=== PATIENT | female | born 1985 | race Caucasian/White ===

== ENCOUNTER 2022-01-16 21:58 | Emergency (ER) | payer SELFPAY ==
[2022-01-16] VITALS (7 sets, daily range): BP systolic 119–129; BP diastolic 70–78
[2022-01-16] MEDS ORDERED: ULTRAM50 M1 PO (23:23)
[2022-01-16] MEDS ORDERED: CLEOCIN300 MG PO (23:23)
== END 2022-01-16 23:50 | disposition home or self-care (01) | DRG 159 ==
LOC: ED 21:58
DX: K04.7 Periapical abscess without sinus (principal)

== ENCOUNTER 2022-04-18 09:27 | Emergency (ER) | payer SELFPAY ==
[~2022-04-18] VITALS: Ht 172.7 cm; Wt 100.0 kg
[~2022-04-18 09:27] MED LIST: CLEOCIN300 MG PO; ULTRAM50 M1 PO
[2022-04-18 09:41] VITALS: BP 127/86
[2022-04-18 09:45] VITALS: BP 123/79
[2022-04-18 10:00] VITALS: BP 114/75
[2022-04-18 10:15] VITALS: BP 130/86
[2022-04-18] MEDS ORDERED: AMOXICILLIN500 M2 PO (10:27)
[2022-04-18 10:30] VITALS: BP 137/85
[2022-04-18 10:34] VITALS: BP 137/85
== END 2022-04-18 10:44 | disposition home or self-care (01) | DRG 159 ==
LOC: ED 09:27
DX: K02.9 Dental caries, unspecified (principal)

== ENCOUNTER 2022-11-13 09:01 | Observation (INO) | payer BC ==
[~2022-11-13] VITALS: Ht 172.7 cm; Wt 147.0 kg
[2022-11-13] VITALS (27 sets, daily range): BP systolic 100–127; BP diastolic 51–75
[~2022-11-13 09:01] MED LIST changes: +AMOXICILLIN500 M2 PO
[2022-11-13 10:30] LABS: BASO% 1.3 % (0-3); EOS% 3.6 % (0-8); HEMATOCRIT 25.4 % (37.0-47.0); LYMPH% 24.9 % (15-41); MEAN CELL VOLUME 63.8 fL CALC (80.0-100.0); MEAN CORPUSCULAR HGB 15.8 pG CALC (26.0-32.0); MEAN CORPUSCULAR HGB CONC 24.8 g/dL CAL (32.0-36.0); MONO% 8.7 % (2-13); NEUT# 2.74 thou/uL (2.00-7.15); NEUT% 61.5 % (42-76); RED BLOOD COUNT 3.98 mill/uL (4.20-5.60); RED CELL DISTRI WIDTH 18.5 % (11.5-15.5)
[2022-11-13 10:36] LABS: HEMOGLOBIN 6.3 g/dl (12.0-16.0)
[2022-11-13 10:37] LABS: ALKALINE PHOSPHATASE 57 u/l (38-126); ANION GAP 12 (6-22 (CALC)); BILIRUBIN, TOTAL 0.4 mg/dL (0.02-1.3); BUN 4 mg/dL (7-17); BUN/CREATININE RATIO 8 (12-20 (CALC)); CARBON DIOXIDE 25 mmol/l (22-30); CHLORIDE 107 mmol/l (95-108); CREATININE 0.5 mg/dL (0.5-1.0); GFR FOR AFR.AMER. > 60 ML/MIN (>=60 (CALC)); GFR OTHER RACES > 60 ML/MIN (>=60 (CALC)); INTERNATIONAL NORMALIZED RATIO 1.1 RATIO (0.7-1.3); POTASSIUM 3.9 mmol/l (3.5-5.1); PROTHROMBIN TIME 10.8 SECONDS (9.0-12.5); SGOT/AST 17 u/l (14-36); SODIUM 140 mmol/l (137-146); TOTAL PROTEIN 7.5 g/dL (6.3-8.2)
[2022-11-13 12:03] LABS: URINE BILIRUBIN - DIPSTICK NEGATIVE (NEGATIVE); URINE BLOOD DIPSTICK MODERATE (NEGATIVE); URINE COLOR YELLOW; URINE GLUCOSE - DIPSTICK NEGATIVE (NEGATIVE); URINE KETONE NEGATIVE (NEGATIVE); URINE LEUK ESTERASE NEGATIVE (NEGATIVE); URINE PH 7.5 (4.5-8.0); URINE PROTEIN - DIPSTICK NEGATIVE (NEG-TRACE); URINE SPECIFIC GRAVITY 1.015; URINE UROBILINOGEN - DIPSTICK 0.2 E.U./dL (0.2)
[2022-11-13 12:11] LABS: URINE EPITHELIAL CELLS FEW EPI/hpf (0-FEW); URINE NITRITE - DIPSTICK NEGATIVE (Negative)
[2022-11-13] MEDS ORDERED: MOTRIN800 MG PO (14:32)
[2022-11-13] MEDS ORDERED: QUETIAPINE FUMA25 MG PO (14:33)
[2022-11-13] MEDS ORDERED: ESCITALOPRAM OXA5 MG PO (14:33)
[2022-11-13] MEDS ORDERED: CLONAZEPAM0.5 M1 PO (15:09)
[2022-11-14] VITALS (7 sets, daily range): BP systolic 101–114; BP diastolic 54–56
[2022-11-14 05:54] LABS: BASO% 1.2 % (0-3); EOS% 4.4 % (0-8); HEMATOCRIT 30.6 % (37.0-47.0); LYMPH% 27.9 % (15-41); MEAN CORPUSCULAR HGB 19.1 pG CALC (26.0-32.0); MEAN CORPUSCULAR HGB CONC 28.1 g/dL CAL (32.0-36.0); MONO% 9.5 % (2-13); NEUT# 2.88 thou/uL (2.00-7.15); RED BLOOD COUNT 4.5 mill/uL (4.20-5.60); RED CELL DISTRI WIDTH 22.6 % (11.5-15.5)
[2022-11-14 06:10] LABS: ALBUMIN 3.7 g/dL (3.2-5.0); ALKALINE PHOSPHATASE 60 u/l (38-126); ANION GAP 12 (6-22 (CALC)); BUN 4 mg/dL (7-17); BUN/CREATININE RATIO 8 (12-20 (CALC)); CARBON DIOXIDE 24 mmol/l (22-30); CHLORIDE 107 mmol/l (95-108); CREATININE 0.5 mg/dL (0.5-1.0); GFR FOR AFR.AMER. > 60 ML/MIN (>=60 (CALC)); GFR OTHER RACES > 60 ML/MIN (>=60 (CALC)); HEMOGLOBIN 8.6 g/dl (12.0-16.0); POTASSIUM 3.8 mmol/l (3.5-5.1); SGOT/AST 19 u/l (14-36); SODIUM 139 mmol/l (137-146); TOTAL PROTEIN 7.1 g/dL (6.3-8.2)
[2022-11-14 06:16] LABS: BILIRUBIN, TOTAL 0.7 mg/dL (0.02-1.3)
== END 2022-11-14 13:10 | disposition home or self-care (01) | DRG 812 ==
LOC: ED 09:01 → ED-I 11:30 → ED 11:58 → MS2 11:59
PROVIDERS: Family Medicine; Nurse Practitioner Family; ADMIT Internal Medicine; ATTEND Internal Medicine
PROC: 30233N1 Transfusion of Nonautologous Red Blood Cells into Peripheral Vein, Percutaneous Approach (ICD-10-PCS; principal; 2022-11-13)
PROC: 30233N1 Transfusion of Nonautologous Red Blood Cells into Peripheral Vein, Percutaneous Approach (ICD-10-PCS; 2022-11-13)
DX: D50.0 Iron deficiency anemia secondary to blood loss (chronic) (principal); N92.0 Excessive and frequent menstruation with regular cycle; F32.A Depression, unspecified; F41.9 Anxiety disorder, unspecified
CPT/HCPCS: G0378; J1756; J3420; P9016

== ENCOUNTER 2024-02-22 23:02 | Emergency (ER) | payer SELFPAY ==
[~2024-02-22] VITALS: Ht 172.7 cm; Wt 78.0 kg
[~2024-02-22 23:02] MED LIST changes: +ADDERALL XR20 MG PO; +CLONAZEPAM0.5 M1 PO; +CORTISPORIN OTI10 M2 AU; +ESCITALOPRAM OXA5 MG PO; +MOTRIN800 MG PO; +QUETIAPINE FUMA25 MG PO; +TAM75CAP PO
[2024-02-22 23:11] VITALS: BP 138/79
[2024-02-22 23:16] VITALS: BP 108/90
[2024-02-22 23:30] VITALS: BP 122/95
[2024-02-22] MEDS ORDERED: CLINDAMYCIN PHOSPHATE 50 ML IV ONE (23:35)
[2024-02-22] MEDS ORDERED: VANCOMYCIN HCL 1 GM in SODIUM CHLORIDE 0.9% 250 ML IV ONE (23:35)
[2024-02-22] MEDS ORDERED: SODIUM CHLORIDE 0.9% 1,000 ML IV ONE (23:35)
[2024-02-22 23:46] VITALS: BP 115/76
[2024-02-22] MEDS ORDERED: KETOROLAC TROMETHAMINE 30 MG/ML SDV IV ONE (23:55)
[2024-02-22 23:56] LABS: BASO% 0.9 % (0-3); EOS% 0.9 % (0-8); IMMATURE GRANULOCYTES 0.5 % (0.0-5.0); LYMPH% 21.2 % (15-41); MEAN CORPUSCULAR HGB 15.4 pG CALC (26.0-32.0); MEAN CORPUSCULAR HGB CONC 25.5 g/dL CAL (32.0-36.0); MONO% 10.9 % (2-13); NEUT# 3.61 thou/uL (2.00-7.15); NEUT% 65.6 % (42-76); RED BLOOD COUNT 3.97 mill/uL (4.20-5.60); RED CELL DISTRI WIDTH 20.2 % (11.5-15.5)
[2024-02-23 00:05] LABS: ALBUMIN 4.2 g/dL (3.2-5.0); BILIRUBIN, TOTAL 0.8 mg/dL (0.02-1.3); CREATININE 0.5 mg/dL (0.5-1.0); POTASSIUM 3.3 mmol/l (3.5-5.1); TOTAL PROTEIN 7.9 g/dL (6.3-8.2)
[2024-02-23 00:11] LABS: HEMATOCRIT 23.9 % (37.0-47.0); HEMOGLOBIN 6.1 g/dl (12.0-16.0); MEAN CELL VOLUME 60.2 fL CALC (80.0-100.0)
[2024-02-23 00:15] VITALS: BP 131/81
[2024-02-23 00:30] VITALS: BP 125/73
[2024-02-23 01:00] VITALS: BP 128/70
[2024-02-23 01:30] VITALS: BP 121/72
[2024-02-23] MEDS ORDERED: CLEOCIN150 M1 PO (01:36)
[2024-02-23] MEDS ORDERED: PROTONIX40 MG PO (01:36)
[2024-02-23 02:01] VITALS: BP 122/76
[2024-02-23 02:25] VITALS: BP 122/76
== END 2024-02-23 02:25 | disposition left against medical advice (07) | DRG 603 ==
LOC: ED 23:02
PROVIDERS: Emergency Medicine
DX: L03.116 Cellulitis of left lower limb (principal); D64.9 Anemia, unspecified; S90.862A Insect bite (nonvenomous), left foot, initial encounter; W57.XXXA Bitten or stung by nonvenomous insect and other nonvenomous arthropods, initial encounter; Z53.29 Procedure and treatment not carried out because of patient's decision for other reasons